=== PATIENT | female | born 1945 | race Caucasian/White ===

== ENCOUNTER → 2017-03-08 | Outpatient (CLI) | payer MEDICARE ==
[~2017-03-08] MED LIST: ALPRAZOLAM0.25 M2 PO; ATORVASTATIN CA20 MG PO; CYMBALTA60 M1 PO; FLONASE 50 MCG16 GM; FLUOROMETHOLONE 0.1%; GABAPENTIN300 M1 PO; HYDROCODON-ACETAMINO PO; HYDROCODONE1 TABLE1 PO; LIDODERM5% TP; LOPRESSOR 25MG.25 MG PO; LORTAB 5/5001 TAB OR; Lipitor; METOPROLOL SUCC25 M1; MONTELUKAST SOD10 MG PO; OMEPRAZOLE40 MG PO; OXYGEN2 IN; PROAIR HFA0.09 MG/AC IH; SPIRIVA HA1 PUFF/INH IN; Symbicort; [UNRECOGNIZED DRUG - OTHER]; oxygen; singular; xanax
--- NOTE | 2017-03-08 17:46 | RADIOLOGY REPORT PS360 ---
KUB (SINGLE VIEW) HISTORY: ABDOMINAL DISTENTION ORDERING PHYSICIAN: Samuel Mckeon MD PATIENT AGE: 71 years COMPARISON: None FINDINGS: The bowel gas pattern is unremarkable. No obvious obstruction.. No abnormal calcifications are evident. No obvious renal or ureteral calculi.. No acute bony anomalies evident. Degenerative changes are present in the lumbar spine and there is a total right hip prosthesis present. Pelvic calcifications are present consistent with phleboliths IMPRESSION: Nonspecific nonacute findings
== END ==
LOC: RAD 15:50
DX: N20.0 Calculus of kidney (principal)